=== PATIENT | male | born 1985 | race African-American/Black ===

== ENCOUNTER 2020-09-05 15:09 | Emergency (ER) | payer OTHER ==
[~2020-09-05] VITALS: Ht 170.2 cm; Wt 63.6 kg
[2020-09-05] MEDS ORDERED: KETOROLAC TROMETHAMINE 10 MG TABLET PO ONE (16:15)
[2020-09-05 17:00] VITALS: BP 120/68
== END 2020-09-05 17:59 | disposition home or self-care (01) ==
LOC: EMS 15:09
DX: S62.312A Displaced fracture of base of third metacarpal bone, right hand, initial encounter for closed fracture (principal); F17.210 Nicotine dependence, cigarettes, uncomplicated; W18.39XA Other fall on same level, initial encounter; Y93.89 Activity, other specified; Y92.89 Other specified places as the place of occurrence of the external cause; Y99.8 Other external cause status
CPT/HCPCS: 73110-TC; 73130-TC; Z7502; Z7610